=== PATIENT | male | born 1965 | race Caucasian/White ===

== ENCOUNTER → 2017-04-12 | Outpatient (CLI) | payer MEDICARE, OTHER ==
[~2017-04-12] MED LIST: AMOXICILLIN PO; ATARAX PO; AZITHROMYCIN250 MG PO; FLEXERIL10 MG PO; KEFLEX500 MG PO; KETOPROFEN PO; LORTAB 7.5-5001 TAB PO; RANITIDINE HCL150 M1 PO; ULTRAM PO; ZANTAC150 MG PO
--- NOTE | ~2017-04-12 | CR4 ---
[facility] A Service of [facility] & [facility] RADIOLOGY TEXT RESULTS PATIENT: SANDRA SIMON LOCATION: [facility] : 61 UNIT #: [id number] AGE: [address]: Cleopatra Lopez MD SEX: M ORDER DR: [id number] [facility] [address] [place], [place] [address] [id number] O MR#: [id number] Acc #: [id number] NAME: SANDRA SIMON : 1965 SEX: M STUDY DATE/TIME: 04/12/2017 15:23 UNIT: [facility] ROOM: STUDY DESCRIPTION: CR Abdomen Flat Upright or Dec Attending Physician: Cleopatra Lopez M.D. Referring Physician: Cleopatra Lopez M.D. Ordering Physician: Cleopatra Lopez M.D. Primary Care Physician: Cleopatra Lopez M.D. MEDICAL IMAGING REPORT This report is preliminary unless electronic signature is present EXAM Flat and upright abdomen HISTORY Abdominal pain, right lateral abdominal wall radiating to the groin for 1 month. FINDINGS KUB and upright abdomen are obtained. The gas pattern is normal. There are postop changes of prior cholecystectomy. No evidence of organomegaly, mass or free air. No dilated or thickened loops of bowel are seen. No pathologic calcifications. CONCLUSION Status post cholecystectomy. Unremarkable abdomen. Dictated by... Fuentes Landry M.D. THIS IS AN ELECTRONICALLY VERIFIED REPORT Fuentes Landry M.D. at 04/13/2017 7:26 AM Michele TD: 04/12/2017 16:28 JOB #: [id number] MEDICAL IMAGING REPORT Page 1 of 1 COPY
== END | disposition home or self-care (01) ==
LOC: CRAD 14:50
DX: R10.10 Upper abdominal pain, unspecified (principal); Z90.49 Acquired absence of other specified parts of digestive tract
CPT/HCPCS: 74020